=== PATIENT | female | born 1990 | race African-American/Black ===

== ENCOUNTER 2024-11-21 16:46 | Emergency (ER) | payer SELFPAY ==
[~2024-11-21] VITALS: Ht 157.5 cm; Wt 73.0 kg
[2024-11-21 17:04] VITALS: TEMP 98.4; O2SAT 100
[2024-11-21 19:55] VITALS: BP 154/126; PULSE 68; RESP 16
[2024-11-21] MEDS: KETOROLAC 30MG/ML VIAL IM ONE (19:55)
[2024-11-21] MEDS ORDERED: IBUP-2030 MT (20:41)
== END 2024-11-21 19:54 | disposition home or self-care (01) ==
LOC: ER 16:46
DX: M53.3 Sacrococcygeal disorders, not elsewhere classified (principal)
CPT/HCPCS: 99283; 72220; 96372; J1885

== ENCOUNTER → 2024-12-01 | Outpatient (CLI) | payer OTHER ==
[~2024-12-01] MED LIST: IBUP-2030 MT
== END | disposition home or self-care (01) ==
LOC: CT 08:08
PROVIDERS: ATTEND Family Medicine Adult Medicine
DX: M95.5 Acquired deformity of pelvis (principal); Z97.5 Presence of (intrauterine) contraceptive device
CPT/HCPCS: 72192